=== PATIENT | female | born 1965 | race Native Hawaiian/Other Pacific Islander ===

== ENCOUNTER 2020-09-06 13:06 | Outpatient (CLI) | payer OTHER | END 2020-09-06 22:16 | disposition home or self-care (01) | LOC: INF 13:06 | PROVIDERS: ATTEND Internal Medicine | DX: Z23 Encounter for immunization (principal) | CPT/HCPCS: 96372 ==

== ENCOUNTER 2020-09-28 13:02 | Outpatient (CLI) | payer OTHER | END 2020-09-28 22:21 | disposition home or self-care (01) | LOC: INF | PROVIDERS: ATTEND Internal Medicine | DX: Z23 Encounter for immunization (principal) | CPT/HCPCS: 96372 ==